=== PATIENT | female | born 1965 | race Two or more races ===

== ENCOUNTER 2018-06-23 04:51 | Day surgery (SDC) | payer OTHER ==
[2018-06-23] MEDS ORDERED: ANESTHESIA TRAY IN PYXIS 1 EA TRAY MC ONE (06:38)
[2018-06-23] MEDS ORDERED: LIDOCAINE HCL/PF 1% 30 ML SDV ONE (06:38)
[2018-06-23] MEDS ORDERED: methylPREDNISolone ACETATE 80 MG/ML VIAL ONE (06:38)
[2018-06-23] MEDS ORDERED: MIDAZOLAM HCL 2 MG/2ML VIAL ONE (07:02)
[2018-06-23] MEDS ORDERED: HYDROMORPHONE INJ 2 MG/ML DISP.SYRIN ONE (07:02)
[2018-06-23] MEDS ORDERED: BUPIVACAINE MPF 0.5% W/EPI INJ 30 ML VIAL ONE (07:02)
[2018-06-23] MEDS ORDERED: ROCURONIUM BROMIDE 50 MG/5 ML ONE (07:04)
[2018-06-23] MEDS ORDERED: ONDANSETRON 4 MG TAB.RAPDIS PO ONE (10:30)
== END 2018-06-23 10:20 | disposition home or self-care (01) ==
LOC: DS 04:51
PROVIDERS: ATTEND Specialist
DX: M75.41 Impingement syndrome of right shoulder (principal); M19.011 Primary osteoarthritis, right shoulder; M65.811 Other synovitis and tenosynovitis, right shoulder; M65.4 Radial styloid tenosynovitis [de Quervain]; G89.18 Other acute postprocedural pain; Z88.0 Allergy status to penicillin; Z79.899 Other long term (current) drug therapy; Z72.89 Other problems related to lifestyle
CPT/HCPCS: 25000; 29824; 29826; 64415; J1170; J2250; J3490 ×2; Q0162; 88304-TC; 88311-TC; A4217; A6402; J0690; J1040; J1100; J1200; J2405; J2704